=== PATIENT | male | born 1990 | race Caucasian/White ===

== ENCOUNTER 2020-09-28 12:21 | Outpatient (REF) | payer OTHER, SELFPAY | END 2020-09-28 12:22 | disposition home or self-care (01) | LOC: HO.LAB 12:21 | PROVIDERS: Visit Provider Internal Medicine | DX: Z20.822 Contact with and (suspected) exposure to COVID-19 (principal) | CPT/HCPCS: 36415; C9803; U0003; U0005 ==

== ENCOUNTER 2023-12-03 19:34 | Outpatient (REF) | payer OTHER, SELFPAY ==
[2023-12-09 12:03] LABS: Alphahydroxymidazolam,GCMS Ur NEGATIVE; Alphahydroxytriazolam, GCMS Ur NEGATIVE; Alprazolam, GCMS Urine NEGATIVE; Flurazepam Metabolite,GCMS Ur NEGATIVE; Lorazepam GCMS Urine NEGATIVE; Nordiazepam, GCMS Urine NEGATIVE; Oxazepam, GCMS Urine NEGATIVE; Temazepam, GCMS Urine NEGATIVE
[2023-12-09 12:04] LABS: Aminoclonazepam, GCMS Urine 189 (H)
== END 2023-12-03 19:35 | disposition home or self-care (01) ==
LOC: HO.HHCLNP 19:34
PROVIDERS: Visit Provider Internal Medicine
DX: F41.1 Generalized anxiety disorder (principal)
CPT/HCPCS: 80346

== ENCOUNTER 2024-02-06 16:32 | Outpatient (REF) | payer OTHER, SELFPAY ==
[2024-02-10 11:52] LABS: Flurazepam Metabolite,GCMS Ur NEGATIVE
[2024-02-10 11:53] LABS: Alphahydroxymidazolam,GCMS Ur NEGATIVE; Alphahydroxytriazolam, GCMS Ur NEGATIVE; Alprazolam, GCMS Urine NEGATIVE; Lorazepam GCMS Urine NEGATIVE; Nordiazepam, GCMS Urine NEGATIVE; Oxazepam, GCMS Urine NEGATIVE; Temazepam, GCMS Urine NEGATIVE
== END 2024-02-06 16:33 | disposition home or self-care (01) ==
LOC: HO.HHCLNP 16:32
PROVIDERS: Visit Provider Internal Medicine
DX: F41.1 Generalized anxiety disorder (principal)
CPT/HCPCS: 80346

== ENCOUNTER 2024-07-09 17:03 | Outpatient (REF) | payer OTHER, SELFPAY ==
[2024-07-13 09:54] LABS: Alphahydroxymidazolam,GCMS Ur NEGATIVE; Alphahydroxytriazolam, GCMS Ur NEGATIVE; Alprazolam, GCMS Urine NEGATIVE; Flurazepam Metabolite,GCMS Ur NEGATIVE; Lorazepam GCMS Urine NEGATIVE; Nordiazepam, GCMS Urine NEGATIVE; Oxazepam, GCMS Urine NEGATIVE; Temazepam, GCMS Urine NEGATIVE
[2024-07-13 09:55] LABS: Aminoclonazepam, GCMS Urine 226 (H)
== END 2024-07-09 17:04 | disposition home or self-care (01) ==
LOC: HO.HHCLNP 17:03
PROVIDERS: Visit Provider Internal Medicine
DX: F41.1 Generalized anxiety disorder (principal)
CPT/HCPCS: 80346

== ENCOUNTER 2024-12-28 16:09 | Outpatient (REF) | payer OTHER, SELFPAY ==
[2024-12-31 12:10] LABS: Aminoclonazepam, GCMS Urine 173
[2024-12-31 12:12] LABS: Alphahydroxymidazolam,GCMS Ur NEGATIVE; Alphahydroxytriazolam, GCMS Ur NEGATIVE; Alprazolam, GCMS Urine NEGATIVE; Flurazepam Metabolite,GCMS Ur NEGATIVE; Lorazepam GCMS Urine NEGATIVE; Nordiazepam, GCMS Urine NEGATIVE; Oxazepam, GCMS Urine NEGATIVE; Temazepam, GCMS Urine NEGATIVE
== END 2024-12-28 16:10 | disposition home or self-care (01) ==
LOC: HO.HHCLNP 16:09
PROVIDERS: Visit Provider Internal Medicine
DX: Z79.899 Other long term (current) drug therapy (principal)
CPT/HCPCS: 80346

== ENCOUNTER 2025-06-29 16:52 | Outpatient (REF) | payer OTHER, SELFPAY ==
--- OUTSIDE RECORDS SUMMARY | 2025-06-29 08:30 | XMS_ITS | Encounter Summary ---
Author Organization [employer] Address [address] 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 Details Date Type Department Care Team (Latest Contact Info) Description 06/29/2025 8:30 AM EST Clinical Support [facility] MEDICINE [address], [place] [phone] Frida Pina RN Long-term current use of benzodiazepine (Primary Dx) Social History Tobacco Use Types Packs/Day Years Used Date Smoking Tobacco: Never Passive Smoke Exposure: Never Smokeless Tobacco: Never Depression Answer Date Recorded Patient Health Questionnaire-9 Score 24 02/10/2024 Patient Health Questionnaire-9 Score 24 02/10/2024 Last PHQ-9: Questionnaire Data Not on file 0 02/10/2024 Housing Stability Answer Date Recorded What is your housing situation today? I have dave casper 11/25/[address] you li ve. Do you have problems with any of the following? None of the above 11/25/2024 Food Insecurity Answer Date Recorded Within the past 12 months, y ou worried that your food would run out before you got money to buy more: Never True 11/25/2024 Within the past 12 months,th e food you bought just didn't last and you didn't have enough money to get more: Never True Transportation Answer Date Recorded In the past 12 months, has l ack of transportation kept you from medical appts, meetings, work or from getting things needed for daily living? No 11/25/2024 Utilities Answer Date Recorded In the past 12 months, has t he electric, gas, oil or water company threatened to shut off services in your home? No 11/25/2024 Depression Answer Date Recorded Patient Health Questionnaire-2 Score 6 02/10/2024 Internet Access Answer Date Recorded Internet Access Q1 Yes 11/25/2024 Internet Access Q2 Not on file 11/25/2024 Sex and Gender Information Value Date Recorded Sex Assigned at Male 05/28/2022 10:17 AM EDT Legal Sex Male 10:17 AM EDT Gender Identity Male 05/28/2022 10:17 AM EDT Sexual Orientation Lesbian or Malcolm 05/28/2022 10 :17 AM EDT documented as of this encounter Functional Status * Over the last 2 weeks, how often have you been bothered by any of the following problems? Question Answer Date of Assessment Author Feeling nervous, anxious, or on edge 2 08/2024 8:57 AM Frida Motta RN Not being able to stop or co ntrol worrying 3 06/29/2025 8:57 AM Frida Motta RN Worrying too much about diff erent things 3 06/29/2025 8:57 AM Frida Motta RN Trouble relaxing 2 06/29/2025 8:57 AM Frida WILSON ae, RN Being so restless that it is hard to sit still 3 06/29/2025 8:57 AM Frida Motta RN Becoming easily annoyed or irritable 2 08/2024 8:57 AM Frida Motta RN Feeling afraid as if somethi ng awful might happen 3 06/29/2025 8:57 AM Frida Motta RN RENO-7 Total Score 18 06/29/2025 8:57 AM Frida Motta RN documented as of this encounter Progress Notes * Frida Pina RN - 06/29/2025 8:30 AM EST SUBJECTIVE: Landen Rogers is a 35 y.o. 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 Pt states he takes a half dose in the morning and the other half in the afternoon. The patient last took Clonazepam (Klonopin) on: 06/29/2025 Medication effective: Yes Sleep habits: ok Therapist: Yes OBJECTIVE: SENIOR IT ARCHITECT checked: 06/29/2025 Pill count completed for Clonazepam (Klonopin), count today is 6 , anticipated count should be 0, this is as expected. Last PCP visit: 10/08/2023 RENO-7 Total Score: 18 (06/29/2025 8:57 AM) Previous RENO-7 done: 01/20/2025, score: 15 Controlled substance agreement signed: Controlled Substance Agreement 12/28/2024 AIRPLANE CHARTER CLERK Tier: 3 Current Medications[1] Smoking status: Denies ETOH use: Denies Illicit substances: Denies Marijuana use: Denies Lab Results Component Value Date POCTHC Negative 06/29/2025 POCCOCAINEUR Negative 06/29/2025 POCOPIATEUR Negative 06/29/2025 DOAUR Negative 06/29/2025 POCAMPHETAMI Negative 06/29/2025 POCBENZODIUR Negative 06/29/2025 POCBARBSCRN Negative 06/29/2025 POCMETHADOUR Negative 06/29/2025 POCBUPSCRN Negative 06/29/2025 POCTCAUR Negative 06/29/2025 POCMDMAUR Negative 06/29/2025 POCOXYCODONE Negative 06/29/2025 POCPHENCYCUR Negative 06/29/2025 PROPOXUR Negative 06/29/2025 FENTANYLURIN Negative 06/29/2025 ASSESSMENT: Encounter Diagnosis Name Primary? Long-term current use of benzodiazepine Yes PLAN: Information on acupuncture given: Previously discussed Narcan education provided: Previously discussed Narcan prescription: active Will update PCP with RENO scoring, abnormal UTOX and request Clonazepam refill. Landen Rogers will continue taking medication as prescribed and follow up at the next AIRPLANE CHARTER CLERK visit rishi if needed. Landen Rogers has verbalized understanding of care plan. Future Appointments Date Time Provider Department Center 07/07/2025 10:00 AM Yumiko Kong MD MEDICINE [facility] 12/28/2025 8:30 AM Frida Pina, RN MEDICINE [facility] Frida Pina RN [1] Current Outpatient Medications: clonazePAM (KlonoPIN) 1 MG tablet, TOME BURAK TABLETA TODOS LOS GARCIA CUANDO SEA NECESARIO POR ATAQUE DE PANICO, Disp: 14 tablet, Rfl: 0 acetaminophen (Tylenol) 500 MG tablet, take 1-2 tablet (1000MG) by oral route TID as needed; max. 6tabs/24 hours, Disp: , Rfl: busPIRone (Buspar) 15 MG tablet, Take 1 tablet by mouth every 8 (eight) hours., Disp: , Rfl: fluticasone (Flonase) 50 MCG/ACT nasal spray, USE 2 SPRAYS IN EACH NOSTRIL EVERY MORNING, Disp: 48 mL, Rfl: 1 melatonin 5 MG tablet, Take 1 tablet by mouth., Disp: , Rfl: sertraline (Zoloft) 25 MG tablet, TOME BURAK TABLETA TODOS [place] GARCIA EN LA [facility], Disp: 30 tablet, Rfl: 0 SUMAtriptan (Imitrex) 50 MG tablet, Take 1 tablet by mouth., Disp: , Rfl: documented in this encounter Plan of Treatment Upcoming Encounters Date Type Department Care Team (Late st Contact Info) Description 07/07/2025 10:00 AM EST Office Visit [address] [address] Yumiko Dozier MD [address] [place] [phone] 12/28/2025 8:30 AM EDT Clinical Support [facility] [address] [place] [address] Frida Pina RN Scheduled Orders Name Type Priority Associated Diagnoses Orde r Schedule Drug Monitoring, Benzodiazepines, Quantitative, Urine Lab Routine Long-term current use of benzodiazepine Ordered: 06/29/2025 documented as of this encounter Procedures Procedure Name Priority Date/Time Associated Diagnosis Comments POCT SONIDO-14 URINE DRUG SCREEN Routine 06/29/2025 8:59 AM EST Long-term current use of benzodiazepine documented in this encounter Results * (ABNORMAL) POCT SONIDO-14 Urine Drug Screen (06/29/2025 8:59 AM EST) THC Negative Negative Cocaine Screen, Urine Negative Negative Opiate Screen, Urine Negative Negative Methamphetamine Screen Urine Negative Negative Amphetamine Screen, Urine Negative Negative Benzodiazepines Screen, Urine Negative Negative Comment:AIRPLANE CHARTER CLERK pt on CLonazepam Barbiturate Screen, Urine Negative Negative Methadone Screen, Urine Negative Negative Buprenophine Screen, Urine Negative Negative TCA, Urine Negative Negative MDMA Urine Negative Negative ng/mL Oxycodone Screen, Urine Negative Negative Phencyclidine (PCP), Urine Negative Negative Propoxyphene, Urine Negative Negative Fentanyl, Urine Negative Negative Urine Urine specimen obtained by clean catch procedure / Unknown 06/29/2025 8:59 AM EST Frida Carbone RN - 06/29/2025 8:59 AM EST UTOX cup Lot#[id number] Exp. 06/28/26 Internal Pass Control Yumiko Kong MD POINT OF CARE TEST EN TER/EDIT ORDERABLES Final Result documented in this encounter Visit Diagnoses Diagnosis Long-term current use of benzodiazepine- Primary documented in this encounter Additional Health Concerns Assessment Noted Time PHQ-9 Depression Total Score: 24 024 11:37 AM EDT documented as of this encounter Care Teams Web Site Project Manager Relationship Specialty Start Date End Date Yumiko Dozier MD [address] [place] [phone] PCP - General Family Medicine 09/02/20 documented as of this encounter
--- OUTSIDE RECORDS SUMMARY | 2025-06-29 17:25 | XMS_ITS | Clinical Summary ---
Author Organization [employer] Address [address] [facility] 7t [place] [address] Care Team Providers Care Battery Parts Assembler Name Role Phone Yumiko Dozier MD Primary Care Provide r Allergies Active Allergy Reactions Criticality Noted Date Comments Aspirin Other reaction(s): unspecified Codeine Other reaction(s): unspecified Medications * This document contains information received from the source organization and may not represent a complete record from that organization. acetaminophen (Tylenol) 500 MG tablet take 1-2 tablet (1000MG) by oral route TID as needed; max. 6 tabs/24 hours 12/27/19 19 Active busPIRone (Buspar) 15 MG tablet Take 1 tablet by mouth every 8 (eight) hours. 12/13/19 21 Active melatonin 5 MG tablet Take 1 tablet by mouth. 12/13/19 21 Active SUMAtriptan (Imitrex) 50 MG tablet Take 1 tablet by mouth. 12/13/19 21 Active sertraline (Zoloft) 25 MG tabletIndicatio ns:Depression with anxiety TOME BURAK TABLETA TODOS LOS GARCIA EN LA MANANA 30 tablet 04/18/20 23 Active fluticasone (Flonase) 50 MCG/ACT nasal sprayIndication s:Rhinitis, unspecified type USE 2 SPRAYS IN EACH NOSTRIL EVERY MORNING 48 mL 1 06/16/20 24 Active clonazePAM (KlonoPIN) 1 MG tabletIndicatio ns:Panic attack TOME BURAK TABLETA TODOS LOS GARCIA CUANDO SEA NECESARIO POR ATAQUE DE PANICO 14 tablet 06/09/20 25 Active clonazePAM (KlonoPIN) 1 MG tabletIndicatio ns:Panic attack TOME BURAK TABLETA TODOS LOS GARCIA CUANDO SEA NECESARIO POR ATAQUE DE PANICO 14 tablet 05/19/20 25 025 Discontinued Active Problems Problem Noted Date Diagnosed Date Long-term current use of benzodiazepine 12/29/19 25 Moderate episode of recurren t major depressive disorder ([facility]/HCC) 03/22/2023 Assessment & Plan (06/10/2023 10:00 AM EST): Patient has not start sertraline yet, I advise to start medication C/w clonazepam and buspirone continue following with therapist Assessment & Plan (03/22/2023 12:14 PM EDT): Patient already has a therapist, I encourage to continue to follow with them Propanolol was stop due to low blood pressure C/w clonazepam PRN and buspirone I started him today on sertraline 25mg daily Letter for housing to be generated (patient instructed to go to medical records) Illiteracy 12/26/2018 Generalized anxiety disorder with panic attacks 10/31/2015 Assessment & Plan (12/12/2023 5:08 PM EDT): Measurement Tools [Check all that apply and include scores] PHQ9, RENO-7 PHQ9: 16 GAD7: 19 STAGES OF CHANGE PREPARATION PLAN: (check all that apply) Behavioral Health Integration Plan Internal Follow up with [facility] Rule Out Diagnoses n/a Behavioral Health Diagnoses At this time Landen meets criteria for Visit Diagnoses: Problem List Items Addressed This Visit Generalized anxiety disorder Depression with anxiety Assessment & Plan (09/27/2023 10:43 AM EST): I rehabilitation services counselor about adherence to medications (sertraline) N referrla today I will refill his clonazepam today I will make sure he has his appointment for PLASTICS SEASONER OPERATOR I will print it and give it to him today RTC 3 months Encounters Date Type Department Care Team Description 06/29/2025 8:30 AM EST Clinical Support [address] [address] Frida Pina RN Long-term current use of benzodiazepine (Primary Dx) 06/29/2025 Refill [facility]ICINE [address] [place] [address] Frida Pina RN Panic attack 06/29/2025 Travel 06/08/2025 Refill [facility] MEDICINE [address] [place] [phone] Yumiko Dozier MD Panic attack 05/19/2025 Refill [facility] MEDICINE [address] [place] [address] Yumiko Dozier MD Panic attack 05/18/2025 Telephone [facility] MEDICINE [address] [place] [address] Yumiko Dozier MD Med Refill 05/03/[address] [address] Yumiko Dozier MD Chart Prep 04/27/2025 Patient Outreach [facility] MEDICINE [address] [place] [address] Yumiko Dozier MD Pre-visit Planning (SDOH screening completed on 11/25/2024) 04/19/2025 Refill [facility]INE [address] [place] [address] Yumiko Dozier MD Panic attack 04/05/[address] [address] Yumiko Dozier MD from Last 3 Months Immunizations Immunization Administration Dates Next Due DTaP 03/17/1992, 9,01/16/1989,1988,1988 Hep B, Adolescent or Pediatric 09/24/2001,2000,03/21/2001 Hib (HbOC) 09/30/1989 Influenza injectable quadriv alent preservative free 10/25/2014 Influenza, Split (incl. sudhir fied surface antigen) 04/14/2013 MMR 03/17/1992,06/18/1989 Moderna Covid-19 Vaccine 12+ 08/24/2021,07/25/20 21 OPV, Trivalent 03/17/1992, 9,01/16/1989,1988,1988 TD (adult), 2 Lf tetanus tox oid, preservative free, adsorbed 03/18/2002 Tdap 11/20/2010 Social History Tobacco Use Types Packs/Day Years Used Date Smoking Tobacco: Never Passive Smoke Exposure: Never Smokeless Tobacco: Never Tobacco Cessation:Counseling Given: Not Answered Depression Answer Date Recorded Patient Health Questionnaire-9 Score 24 02/10/2024 Patient Health Questionnaire-9 Score 24 02/10/2024 Last PHQ-9: Questionnaire Data Not on file 0 02/10/2024 Housing Stability Answer Date Recorded What is your housing situation today? I have dave shirley 11/25/[address] you li [...] or Malcolm 05/28/2022 10 :17 AM EDT Last Filed Vital Signs Vital Sign Reading Time Taken Comments Blood Pressure 124/80 02/06/2024 10:04 AM EDT Pulse 72 02/06/2024 10:04 AM EDT Temperature 36.7 C (98 F) 09/27/2023 10:16 AM EST Respiratory Rate 16 02/06/2024 10:04 AM EDT Oxygen Saturation 96% 09/27/2023 10:16 AM EST Inhaled Oxygen Concentration - - Weight 70.5 kg (155 lb 6.4 oz) 09/27/2023 10:16 AM EST Height 172.7 cm (5' 8 ) 09/27/2023 10:16 AM EST Body Mass Index 23.63 09/27/2023 10:16 AM EST Plan of Treatment Upcoming Encounters Date Type Department Care Team (Late st Contact Info) Description 07/07/2025 10:00 AM EST Office Visit [facility] MED[facility]INE [address] [place] [phone] Yumiko Dozier MD [address] [place], [place] [phone] 12/28/2025 8:30 AM EDT Clinical Support [facility] MED[facility]INE [address] [place] [address] Frida Pina, SANDRA Health Maintenance Due Date Last Done Comments HIV Screening 1988 Lipid Panel 1988 Disability Screening 1988 Alcohol/Substance Use Screening 2000 Family Planning (PISQ) 2003 HPV Vaccines (1 - Male 3-dose series) 2003 Hepatitis C Screening 2006 DTaP/Tdap/Td Vaccines (7 - Td or Tdap) 11/20/2020 11/20/2010, 03/18/2002, 03/17/1992, Additional history exists Depression Monitoring 08/12/2024 02/10/2024, 024 COVID-19 Vaccine ( season) 2025 08/24/2021, 07/25/2021 Influenza Vaccine (#1) 2025 10/25/2014, 2012 SDOH Screening 11/25/2025 11/25/2024 Tobacco Screening 11/25/2025 11/25/2024 Zoster Vaccines (1 of 2) 2038 RSV Patients and Patients Aged 60 years or older (1 - 1-dose 75+ series) 2063 HIB Vaccines Completed 09/30/1989 IPV Vaccines Completed 03/17/1992, 05/30, 01/16/1989, Additional history exists Hepatitis B Vaccines Completed 09/24/2001, 04/22/2001, 03/21/2001 Hepatitis A Vaccines Aged Out No long er eligible based on patient's age to complete this topic Meningococcal B Vaccine Aged Out No l onger eligible based on patient's age to complete this topic Meningococcal Vaccine Aged Out No terence rajesh eligible based on patient's age to complete this topic Pneumococcal Vaccine: Pediatrics (0 to 5 Years) and At-Risk Patients (6 to 49) Years Aged Out No longer eligible based on patient's age to complete this topic RSV under 20 months Aged Out No longe r eligible based on patient's age to complete this topic Rotavirus Vaccines Aged Out No longer eligible based on patient's age to complete this topic Procedures Procedure Name Priority Date/Time Associated Diagnosis Comments POCT SONIDO-14 URINE DRUG SCREEN Routine 06/29/2025 8:59 AM EST Long-term current use of benzodiazepine from Last 3 Months Results * (ABNORMAL) POCT SONIDO-14 Urine Drug Screen (06/29/2025 8:59 AM EST) THC Negative Negative Cocaine Screen, Urine Negative Negative Opiate Screen, Urine Negative Negative Methamphetamine Screen Urine Negative Negative Amphetamine Screen, Urine Negative Negative Benzodiazepines Screen, Urine Negative Negative Comment:PLASTICS SEASONER OPERATOR pt on CLonazepam Barbiturate Screen, Urine Negative [...] - 06/29/2025 8:59 AM EST UTOX cup Lot#[id number] Exp. 06/28/26 Internal Pass Control us Yumiko Kong MD POINT OF CARE TEST EN TER/EDIT ORDERABLES Final Result from Last 3 Months Insurance [facility] < 65 [place] FATIMA [phone] Care Teams Battery Parts Assembler Relationship Specialty Start Date End Date Yumiko Dozier MD [address] [place] [phone] PCP - General Family Medicine 09/02/20
--- OUTSIDE RECORDS SUMMARY | 2025-06-29 17:25 | XMS_ITS | Clinical Summary ---
Author Organization [facility] Address [address] [place] [address] Care Team Providers Care Odd Bundle Worker Name Role Phone Unavailable Primary Care Provider Unavailabl e Social History Tobacco Use Types Packs/Day Years Used Date Smoking Tobacco: Never Assessed Sex and Gender Information Value Date Recorded Sex Assigned at Not on file Legal Sex Male 3:43 PM EDT Gender Identity Not on file Sexual Orientation Not on file Plan of Treatment Health Maintenance Due Date Last Done Comments DTaP,Tdap,and Td Vaccines (1 - Tdap) 2007 Hepatitis B Vaccines (1 of 3 - 19+ 3-dose series) 2007 HPV Vaccines (1 - 3-dose SCD M series) 2015 Cholesterol Screening (Lipid Panel) 05/07/2024 HIV Screening 05/07/2024 Hepatitis C Screening 05/07/2024 Social Influencers of Health Screening 05/07/2024 Depression Screening 07/29/2024 COVID-19 Vaccine ( - 2024-2 6 season) 2025 Influenza Vaccine (#1) 2025 RSV Immunization Adult Patie nts (1 - 1-dose 75+ series) 2063 HIB Vaccines Aged Out No longer eligi ble based on patient's age to complete this topic Hepatitis A Vaccines Aged Out No long er eligible based on patient's age to complete this topic IPV Vaccines Aged Out No longer eligi ble based on patient's age to complete this topic MMR Vaccines Aged Out No longer eligi ble based on patient's age to complete this topic Meningococcal ACWY Vaccine Aged Out N o longer eligible based on patient's age to complete this topic Meningococcal B Vaccine Aged Out No l onger eligible based on patient's age to complete this topic Pneumococcal Vaccine: Pediat rics (0 to 5 Years) and At-Risk Patients (6 to 49 Years) Aged Out No longer eligible b ased on patient's age to complete this topic RSV Immunization Patients Un raad 20 months Aged Out No longer eligible b ased on patient's age to complete this topic Varicella Vaccines Aged Out No longer eligible based on patient's age to complete this topic
--- OUTSIDE RECORDS SUMMARY | 2025-06-29 17:25 | XMS_ITS | Encounter Summary ---
Author Organization [employer] Address 75 [facility] 7t [place] [address] Care Team Providers Care Deputy Fire Marshal Name Role Phone Yumiko Dozier MD Primary Care Provide r Reason for Visit * Reason Onset Date Comments tranfer patient appt 07/03/2022 Appointment Request 07/03/2022 ; Encounter Details Date Type Department Care Team (Late st Contact Info) Description 07/03/2022 Telephone [facility] MEDICINE [address] [place] [phone] Yumiko Dozier MD [address] [place] [phone] tranfer patient appt; Appointment Request (;) Social History Tobacco Use Types Packs/Day Years Used Date Smoking Tobacco: Never Assessed Sex and Gender Information Value Date Recorded Sex Assigned at Male 05/28/2022 10:17 AM EDT Legal Sex Male 10:17 AM EDT Gender Identity Male 05/28/2022 10:17 AM EDT Sexual Orientation Lesbian or Malcolm 05/28/2022 10 :17 AM EDT documented as of this encounter Miscellaneous Notes * Telephone Encounter - Lilo Mehta - 07/03/2022 1:17 PM EST Tc from pt requesting a TP appt with new pcp . documented in this encounter Plan of Treatment Upcoming Encounters Date Type Department Care Team (Late st Contact Info) Description 07/07/2025 10:00 AM EST Office Visit [address] [address] Yumiko Dozier MD [address] [place] [address] 12/28/2025 8:30 AM EDT Clinical Support [address] [address] Frida Pina RN documented as of this encounter Visit Diagnoses Not on filedocumented in this encounter Care Teams Deputy Fire Marshal Relationship Specialty Start Date End Date Yumiko Dozier MD [address] [place] [address] [phone] PCP - General Family Medicine 09/02/20 documented as of this encounter
--- OUTSIDE RECORDS SUMMARY | 2025-06-29 17:25 | XMS_ITS | Encounter Summary ---
Author Organization [email or web address] Address [address] [facility] [address] [place] [address] Care Team Providers Care Mechanical Design Engineer Name Role Phone Yumiko Dozier MD Primary Care Provide r Encounter Details Date Type Department Care Team (Latest Contact Info) Description 06/29/2025 Travel Social History Tobacco Use Types Packs/Day Years [...] Motta RN documented as of this encounter Plan of Treatment Upcoming Encounters Date Type Department Care Team (Late st Contact Info) Description 07/07/2025 10:00 AM EST Office Visit [facility] MEDICINE [address] [place] [phone] Yumiko Dozier MD [address] [place] [phone] 12/28/2025 8:30 AM EDT Clinical Support [facility] MEDICINE [address] [place] [address] Frida Pina RN documented as of this encounter Visit Diagnoses Not on filedocumented in this encounter Additional Health Concerns Assessment Noted Time PHQ-9 Depression Total Score: 24 024 11:37 AM EDT documented as of this encounter Care Teams Mechanical Design Engineer Relationship Specialty Start Date End Date Yumiko Dozier MD [address] [place] [address] PCP - General Family Medicine 09/02/20 documented as of this encounter
--- OUTSIDE RECORDS SUMMARY | 2025-06-29 17:25 | XMS_ITS | Encounter Summary ---
Author Organization [employer] Address [address] [facility] 7t [place] [address] Care Team Providers Care Warehouse Foreman Name Role Phone Yumiko Dozier MD Primary Care Provide r Reason for Visit * Reason Comments Med Refill Encounter Details Date Type Department Care Team (Late st Contact Info) Description 01/01/2023 Refill [facility] [address] [place] [address] [phone] Yumiko Dozier MD [address] [place] [address] [phone] Panic attack Social History Tobacco Use Types Packs/Day Years Used Date Smoking Tobacco: Never Assessed Sex and Gender Information Value Date Recorded Sex Assigned at Male 05/28/2022 10:17 AM EDT Legal Sex Male 10:17 AM EDT Gender Identity Male 05/28/2022 10:17 AM EDT Sexual Orientation Lesbian or Malcolm 05/28/2022 10 :17 AM EDT documented as of this encounter Miscellaneous Notes * Telephone Encounter - Viviana Melgoza RN - 01/01/2023 3:42 PM EDT Duplicate request. Already sent to PCP documented in this encounter Plan of Treatment Upcoming Encounters Date Type Department Care Team ([facility] Contact Info) Description 07/07/2025 10:00 AM EST Office Visit [facility] [address] [place] [address] [phone] Yumiko Dozier MD [address] [place] [phone] 12/28/2025 8:30 AM EDT Clinical Support [facility] [address] [place] [address] [phone] Frida Pina RN documented as of this encounter Visit Diagnoses Diagnosis Panic attack Panic disorder without agoraphobia documented in this encounter Care Teams Warehouse Foreman Relationship Specialty Start Date End Date Yumiko Dozier MD [address] [place] [address] [phone] PCP - General Family Medicine 09/02/20 documented as of this encounter
--- OUTSIDE RECORDS SUMMARY | 2025-06-29 17:25 | XMS_ITS | Encounter Summary ---
Author Organization [email or web address] Address [address] [facility] 7t [place] [address] Care Team Providers Care Shaft Mechanic Name Role Phone Yumiko Dozier MD Primary Care Provide r Reason for Visit * Reason Onset Date Comments Med Refill 01/01/2023 Encounter Details Date Type Department Care Team (Late st Contact Info) Description 01/01/2023 Telephone [facility] [address] [place] [address] [phone] Yumiko Dozier MD [address] [place], [place] [phone] Med Refill Social History Tobacco Use Types Packs/Day Years Used Date Smoking Tobacco: Never Assessed Sex and Gender Information Value Date Recorded Sex Assigned at Male 05/28/2022 10:17 AM EDT Legal Sex Male 10:17 AM EDT Gender Identity Male 05/28/2022 10:17 AM EDT Sexual Orientation Lesbian or Malcolm 05/28/2022 10 :17 AM EDT documented as of this encounter Miscellaneous Notes * Telephone Encounter - Khushbu Petersen - 01/01/2023 2:22 PM EDT Tc from pt requesting medication refill for clonazePAM (KlonoPIN) 1 MG tablet documented in this encounter Plan of Treatment Upcoming Encounters Date Type Department Care Team (Late st Contact Info) Description 07/07/2025 10:00 AM EST Office Visit [facility] MED[facility]INE [address] [place] [address] [phone] Yumiko Dozier MD [address] [place] [phone] 12/28/2025 8:30 AM EDT Clinical Support [facility]INE [address] [place] [address] [phone] Frida Pina RN documented as of this encounter Visit Diagnoses Not on filedocumented in this encounter Care Teams Shaft Mechanic Relationship Specialty Start Date End Date Yumiko Dozier MD [address] [place] [address] [phone] PCP - General Family Medicine 09/02/20 documented as of this encounter
--- OUTSIDE RECORDS SUMMARY | 2025-06-29 17:25 | XMS_ITS | Encounter Summary ---
Author Organization [employer] Address [address] [place] [address] 7t [place] [address] Care Team Providers Care Boxing Promoter Name Role Phone Yumiko Dozier MD Primary Care Provide r Encounter Details Date Type Department Care Team (Late st Contact Info) Description 12/19/2022 [facility] [email or web address] [address] [place] [address] [phone] Yumiko Dozier MD [address] [place] [address] [phone] Social History Tobacco Use Types Packs/Day Years Used Date Smoking Tobacco: Never Assessed Sex and Gender Information Value Date Recorded Sex Assigned at Male 05/28/2022 10:17 AM EDT Legal Sex Male 10:17 AM EDT Gender Identity Male 05/28/2022 10:17 AM EDT Sexual Orientation Lesbian or Malcolm 05/28/2022 10 :17 AM EDT documented as of this encounter Plan of Treatment Upcoming Encounters Date Type Department Care Team (Late st Contact Info) Description 07/07/2025 10:00 AM EST Office Visit [facility] [address] [place] [address] [phone] Yumiko Dozier MD [address] [place] [address] [phone] 12/28/2025 8:30 AM EDT Clinical Support [facility] [address] [place] [address] [phone] Frida Pina RN documented as of this encounter Visit Diagnoses Not on filedocumented in this encounter Care Teams Boxing Promoter Relationship Specialty Start Date End Date Yumiko Dozier MD [address] [place] [address] [phone] PCP - General Family Medicine 09/02/20 documented as of this encounter
--- OUTSIDE RECORDS SUMMARY | 2025-06-29 17:25 | XMS_ITS | Encounter Summary ---
Author Organization [employer] Address [address] [facility] [address] 7[address] [place] [address] Care Team Providers Care Veneer Department Manager Name Role Phone Yumiko Dozier MD Primary Care Provide r Reason for Visit * Reason Onset Date Comments Med Refill 06/29/2025 RENO Scoring 06/29/2025 Abnormal UTOX 06/29/2025 Encounter Details Date Type Department Care Team (Late st Contact Info) Description 06/29/2025 Refill [facility] [address] [place] [address] Frida Pina, SANDRA Panic attack Social History Tobacco Use Types [...] Motta RN documented as of this encounter Miscellaneous Notes * Telephone Encounter - Frida Pina RN - 06/29/2025 9:00 AM EST Pt had [facility] appointment today [facility], sent out for confirmation. RENO-7 Total Score: 18 (06/29/2025 8:57 AM) Previous RENO-7 done: 01/20/2025, score: 15 Reminded to ATTEND PCP appointment 07/07/25 documented in this encounter Plan of Treatment Upcoming Encounters Date Type Department Care Team (Late st Contact Info) Description 07/07/2025 10:00 AM EST Office Visit [address] [phone] Yumiko Dozier MD [address] [place] [phone] 12/28/2025 8:30 AM EDT Clinical Support [address] [address] Frida Pina RN documented as of this encounter Visit Diagnoses Diagnosis Panic attack Panic disorder without agoraphobia documented in this encounter Additional Health Concerns Assessment Noted Time PHQ-9 Depression Total Score: 24 024 11:37 AM EDT documented as of this encounter Care Teams Veneer Department Manager Relationship Specialty Start Date End Date Yumiko Dozier MD [address] [place] [phone] PCP - General Family Medicine 09/02/20 documented as of this encounter
--- OUTSIDE RECORDS SUMMARY | 2025-06-29 17:25 | XMS_ITS | Encounter Summary ---
Author Organization [employer] Address [address] [facility] 7t [place] [address] Care Team Providers Care Special Client Bus Driver Name Role Phone Yumiko Dozier MD Primary Care Provide r Reason for Visit * Reason Comments Med Change Request Encounter Details Date Type Department Care Team (Late st Contact Info) Description 05/02/2023 Refill [facility] [address] [place] [phone] Bettye Henry FNP Depression with anxiety Social History Tobacco Use Types Packs/Day Years Used Date Smoking Tobacco: Never Passive Smoke Exposure: Never Smokeless Tobacco: Never Depression Answer Date Recorded Patient Health Questionnaire-9 Score 15 03/20/2023 Depression Answer Date Recorded Patient Health Questionnaire-2 Score 4 03/20/2023 Sex and Gender Information Value Date Recorded [...] Description 07/07/2025 10:00 AM EST Office Visit [facility] [address] [place] [phone] Yumiko Dozier MD [address] [place] [phone] 12/28/2025 8:30 AM EDT Clinical Support [facility] [address] [place] [phone] Frida Pina, RN documented as of this encounter Visit Diagnoses Diagnosis Depression with anxiety Dysthymic disorder documented in this encounter Additional Health Concerns Assessment Noted Time PHQ-9 Depression Total Score: 15 023 10:58 AM EDT documented as of this encounter Care Teams Special Client Bus Driver Relationship Specialty Start Date End Date Yumiko Dozier MD [address] [place] [phone] PCP - General Family Medicine 09/02/20 documented as of this encounter
[2025-07-05 10:49] LABS: Alphahydroxymidazolam,GCMS Ur NEGATIVE; Alphahydroxytriazolam, GCMS Ur NEGATIVE; Alprazolam, GCMS Urine NEGATIVE; Benzo GC/MS Note NEGATIVE; Flurazepam Metabolite,GCMS Ur NEGATIVE; Lorazepam GCMS Urine NEGATIVE; Nordiazepam, GCMS Urine NEGATIVE; Oxazepam, GCMS Urine NEGATIVE; Temazepam, GCMS Urine NEGATIVE
[2025-07-05 10:52] LABS: Aminoclonazepam, GCMS Urine 250
== END 2025-06-29 16:53 | disposition home or self-care (01) ==
LOC: HO.HHCLNP 16:52
PROVIDERS: Visit Provider Internal Medicine
DX: Z51.81 Encounter for therapeutic drug level monitoring (principal); Z79.899 Other long term (current) drug therapy
CPT/HCPCS: 80346